=== PATIENT | female | born 1965 | race Caucasian/White ===

== ENCOUNTER 2020-05-24 21:03 | Inpatient (IN) | payer BC, OTHER ==
[~2020-05-24] VITALS: Ht 167.6 cm; Wt 98.9 kg
[~2020-05-24 21:03] MED LIST: FENOFIBRATE145 MG PO; FLAGYL500 MG PO; IMITREX100 MG PO; LEVAQUIN750 MG PO; LOSARTAN-HCTZ1 EAC2 PO; SYNTHROID100 MCG PO; TORADOL 10 MG T10 MG PO; ZYRTEC10 MG PO
[2020-05-24 22:06] LABS: RED BLOOD COUNT 4.41 M/UL (4.00-5.10); WHITE BLOOD COUNT 9.7 K/UL (4.5-11.0)
[2020-05-24 22:29] LABS: BUN/CREATININE RATIO 12 (0-10)
[2020-05-25] MEDS ORDERED: TRICOR145 MG PO (10:35)
[2020-05-25] MEDS ORDERED: KETOROLAC TROME10 MG PO (10:36)
[2020-05-25 14:43] LABS: ACINETOBACTER BAUMANNII Not Detected (Negative); CANDIDA ALBICANS Not Detected (Negative); CANDIDA KRUSEI Not Detected (Negative); CANDIDA TROPICALIS Not Detected (Negative); ENTEROCOCCUS Not Detected (Negative); HAEMOPHILUS INFLUENZAE Not Detected (Negative); KLEBSIELLA OXYTOCA Not Detected (Negative); KLEBSIELLA PNEUMONIAE Not Detected (Negative); KPC-CARBAPENEM-RESISTANCE GENE Not Detected (Negative); PROTEUS Not Detected (Negative); PSEUDOMONAS AERUGINOSA Not Detected (Negative); SERRATIA MARCESANS Not Detected (Negative); STAPHYLOCOCCUS Not Detected (Negative); STAPHYLOCOCCUS AUREUS Not Detected (Negative); STREP AGALACTIAE (GROUP B) Not Detected (Negative); STREP PYOGENES (GROUP A) Not Detected (Negative); STREPTOCOCCUS Not Detected (Negative); mecA (METHICILLIN RESIST GENE Not Detected (Negative); vanA/B (VANCOMYCIN RESIST GENE Not Detected (Negative)
[2020-05-25 16:06] LABS: ESCHERICHIA COLI DETECTED (Negative)
[2020-05-26 06:47] LABS: WHITE BLOOD COUNT 8.6 K/UL (4.5-11.0)
[2020-05-26 07:10] LABS: HEMOGLOBIN 10.7 gm/dl (12.3-15.3); RED BLOOD COUNT 3.38 M/UL (4.00-5.10)
[2020-05-26 07:27] LABS: BUN/CREATININE RATIO 13 (0-10)
--- NOTE | 2020-05-26 09:52 | NUR ---
0755: PATIENT INJECTED FOR STRESS TEST. 0830: PATIENT LEFT FLOOR VIA W/C FOR STRESS TEST. 0948: STRESS TEST COMPLETED, PATIENT RETURNED TO ROOM VIA W/C.
[2020-05-27 05:54] LABS: HEMOGLOBIN 10.8 gm/dl (12.3-15.3); RED BLOOD COUNT 3.43 M/UL (4.00-5.10)
[2020-05-27 06:01] LABS: WHITE BLOOD COUNT 6.2 K/UL (4.5-11.0)
[2020-05-27 06:10] LABS: BUN/CREATININE RATIO 13 (0-10)
[2020-05-28 03:19] LABS: RED BLOOD COUNT 3.52 M/UL (4.00-5.10); WHITE BLOOD COUNT 5.5 K/UL (4.5-11.0)
[2020-05-28 03:35] LABS: BUN/CREATININE RATIO 11 (0-10)
[2020-05-30 04:17] LABS: HEMOGLOBIN 11.1 gm/dl (12.3-15.3); RED BLOOD COUNT 3.56 M/UL (4.00-5.10)
[2020-05-30 04:32] LABS: WHITE BLOOD COUNT 7.4 K/UL (4.5-11.0)
[2020-05-30 04:35] LABS: BUN/CREATININE RATIO 10 (0-10)
[2020-05-30] MEDS ORDERED: LEVOFLOXACIN500 MG PO (11:47)
[2020-05-30] MEDS ORDERED: FLAGYL500 MG PO (11:47)
[2020-07-07] MEDS ORDERED: LEVOTHYROXINE112 MC1 PO (11:46)
[2020-07-07] MEDS ORDERED: PROTONIX40 MG PO (13:13)
== END 2020-05-30 13:51 | disposition home or self-care (01) | DRG 872 ==
LOC: ER1 21:03 → CDU 05-25 01:11 → MED SURG 4 05-25 16:42
PROVIDERS: Emergency Medicine; Internal Medicine; ADMIT Internal Medicine
DX: A41.51 Sepsis due to Escherichia coli [E. coli] (principal); K57.32 Diverticulitis of large intestine without perforation or abscess without bleeding; E87.2 Acidosis; R65.20 Severe sepsis without septic shock; I10 Essential (primary) hypertension; D64.89 Other specified anemias; Z20.822 Contact with and (suspected) exposure to COVID-19; S93.402A Sprain of unspecified ligament of left ankle, initial encounter; W18.30XA Fall on same level, unspecified, initial encounter; F17.200 Nicotine dependence, unspecified, uncomplicated; E66.01 Morbid (severe) obesity due to excess calories; E03.9 Hypothyroidism, unspecified; E86.0 Dehydration; E87.6 Hypokalemia; Z90.49 Acquired absence of other specified parts of digestive tract; Z90.710 Acquired absence of both cervix and uterus; Z83.3 Family history of diabetes mellitus; Z88.0 Allergy status to penicillin; Z79.899 Other long term (current) drug therapy; Z68.30 Body mass index [BMI] 30.0-30.9, adult
CPT/HCPCS: 0240U; 36415; 71045; 73610; 80048; 80053; 81001; 82550; 82553; 83605; 83690; 83735; 83874; 84439; 84443; 84484; 84703; 85025; 85379; 85652; 86140; 87040; 87077; 87150; 87186; 87449; 93005; 96365; 96366; 96367; 96375; 96376; 99285; C9113; J1650; J1956; J2185; J2270; J2405; J7120; Q9967

== ENCOUNTER → 2020-07-07 | Day surgery (SDC) | payer BC, OTHER ==
[~2020-07-07] VITALS: Ht 167.6 cm; Wt 98.4 kg
[~2020-07-07] MED LIST changes: +KETOROLAC TROME10 MG PO; +LEVOFLOXACIN500 MG PO; +LEVOTHYROXINE112 MC1 PO; +PROTONIX40 MG PO; +TRICOR145 MG PO
== END | disposition home or self-care (01) ==
LOC: OR 10:47
DX: D12.2 Benign neoplasm of ascending colon (principal); K57.30 Diverticulosis of large intestine without perforation or abscess without bleeding; K64.1 Second degree hemorrhoids; K56.609 Unspecified intestinal obstruction, unspecified as to partial versus complete obstruction; K29.50 Unspecified chronic gastritis without bleeding; K31.9 Disease of stomach and duodenum, unspecified; K25.0 Acute gastric ulcer with hemorrhage; K21.00 Gastro-esophageal reflux disease with esophagitis, without bleeding; G43.909 Migraine, unspecified, not intractable, without status migrainosus; I10 Essential (primary) hypertension; J44.9 Chronic obstructive pulmonary disease, unspecified; E03.9 Hypothyroidism, unspecified; F32.9 Major depressive disorder, single episode, unspecified; E66.8 Other obesity; E78.00 Pure hypercholesterolemia, unspecified; Z87.891 Personal history of nicotine dependence; Z68.34 Body mass index [BMI] 34.0-34.9, adult; Z88.0 Allergy status to penicillin; Z79.899 Other long term (current) drug therapy
CPT/HCPCS: J7040